=== PATIENT | female | born 2000 | race African-American/Black ===

== ENCOUNTER 2022-03-02 16:47 | Emergency (ER) | payer SELFPAY ==
--- OUTSIDE RECORDS SUMMARY | 2022-03-02 17:06 | XMS REPORT | Continuity of Care Document ---
:2000 Author Organization [facility] Address [address] [place] [address] Dr. Humphreys. [address] [place] [id number] Care Team Providers Name Role Phone Unavailable Unavailable Unavailable Problems This patient has no known problems. Allergies, Adverse Reactions, Alerts This patient has no known allergies or adverse reactions. Medications This patient has no known medications. Procedures This patient has no known procedures. Results This patient has no known results.
--- NOTE | 2022-03-02 18:27 | RAD REPORT ---
EXAM DESCRIPTION: RAD - Ankle Left 3 View - 03/02/2022 6:11 pm CLINICAL HISTORY: PAIN COMPARISON: No comparisons FINDINGS: No fracture or dislocation seen.
--- NOTE | 2022-03-02 18:51 | EDPHYS ---
Physician Documentation [facility] Name: Angélica Vaughn Age: 21 yrs Sex: Female : 2000 Arrival Date: 03/02/2022 Time: 16:48 Bed 12 Private MD: ED Physician Steven Main HPI: 03/02 19:04 This 21 yrs old Black Female presents to ER via Wheelchair with complaints of Ankle snw Injury. 19:04 The patient presents with decreased range of motion, tenderness. The complaints affect snw the left ankle. Onset: The symptoms/episode began/occurred suddenly, today, and became persistent. Context: The problem was sustained outdoors, resulted from a mis-step by the patient, on a curb, The mechanism of injury involved inversion of the affected ankle. The patient can partially bear weight on the affected extremity. Associated signs and symptoms: Pertinent positives: swelling. Severity of symptoms: At their worst the symptoms were mild, moderate. The patient has not experienced similar symptoms in the past. 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 - Social history:: Smoking status: unknown. ROS: 18:58 Constitutional: Negative for fever, chills, and weight loss, Eyes: Negative for injury, snw pain, redness, and discharge, ENT: Negative for injury, pain, and discharge, Neck: Negative for injury, pain, and swelling, Cardiovascular: Negative for chest pain, palpitations, and edema, Respiratory: Negative for shortness of breath, cough, wheezing, and pleuritic chest pain, Abdomen/GI: Negative for abdominal pain, nausea, vomiting, diarrhea, and constipation, Back: Negative for injury and pain, : Negative for injury, bleeding, discharge, and swelling, Skin: Negative for injury, rash, and discoloration, Neuro: Negative for headache, weakness, numbness, tingling, and seizure, Psych: Negative for depression, anxiety, suicide ideation, homicidal ideation, and hallucinations. 18:58 MS/extremity: Positive for injury or acute deformity, pain, swelling, of the left lateral malleolus. Exam: 18:56 Constitutional: This is a well developed, well nourished patient who is awake, alert, snw and in no acute distress. Head/Face: Normocephalic, atraumatic. Eyes: Pupils equal round and reactive to light, extra-ocular motions intact. Lids and lashes normal. Conjunctiva and sclera are non-icteric and not injected. Cornea within normal limits. Periorbital areas with no swelling, redness, or edema. ENT: Nares patent. No nasal discharge, no septal abnormalities noted. Tympanic membranes are normal and external auditory canals are clear. Oropharynx with no redness, swelling, or masses, exudates, or evidence of obstruction, uvula midline. Mucous membranes moist. Neck: Trachea midline, no thyromegaly or masses palpated, and no cervical lymphadenopathy. Supple, full range of motion without nuchal rigidity, or vertebral point tenderness. No Meningismus. Chest/axilla: Normal chest wall appearance and motion. Nontender with no deformity. No lesions are appreciated. Cardiovascular: Regular rate and rhythm with a normal S1 and S2. No gallops, murmurs, or rubs. Normal PMI, no JVD. No pulse deficits. Respiratory: Lungs have equal breath sounds bilaterally, clear to auscultation and percussion. No rales, rhonchi or wheezes noted. No increased work of breathing, no retractions or nasal flaring. Abdomen/GI: Soft, non-tender, with normal bowel sounds. No distension or tympany. No guarding or rebound. No evidence of tenderness throughout. Back: No spinal tenderness. No costovertebral tenderness. Full range of motion. Skin: Warm, dry with normal turgor. Normal color with no rashes, no lesions, and no evidence of cellulitis. Neuro: Awake and alert, GCS 15, oriented to person, place, time, and situation. Cranial nerves II-XII grossly intact. Motor strength 5/5 in all extremities. Sensory grossly intact. Cerebellar exam normal. Normal gait. 18:56 Musculoskeletal/extremity: Extremities: grossly normal except: noted in the left lateral malleolus: swelling, tenderness, ROM: limited active range of motion due to pain, in the left ankle, Circulation is intact in all extremities. Sensation intact. Vital Signs: 17:19 BP 109 / 83; Pulse 75; Resp 16; Temp 97.9; Pulse Ox 100% on R/A; Pain 9/10; iw MDM: 17:20 Patient medically screened. [facility] 18:57 Differential diagnosis: fracture, sprain, gout. Data reviewed: vital signs, nurses snw notes, radiologic studies, plain films. I considered the following discharge prescriptions or medication management in the emergency department Pain Medications: At this time, prescription pain medications are not recommended, pt quite sleepy. Counseling: I had a detailed discussion with the patient and/or guardian regarding: the need for outpatient follow up, for definitive care, a orthopedic surgeon. Special discussion: Based on the history and exam findings, there is no indication for further emergent testing or inpatient evaluation. I discussed with the patient/guardian the need to see the orthopedic surgeon for further evaluation of the symptoms. I discussed with the patient/guardian the need to see the primary care provider for further evaluation of the symptoms. 03/02 17:23 Order name: Ankle Left 3 View XRAY; Complete Time: 18:44 snw 03/02 18:55 Order name: Walking boot; Complete Time: 18:58 snw Administered Medications: No medications were administered Disposition Summary: 03/02/22 18:50 Discharge Ordered Location: Home snw Condition: Stable snw Diagnosis - Sprain of ankle snw Followup: snw - With: Private Physician - When: 2 - 3 days - Reason: Recheck today's complaints, Continuance of care, Re-evaluation by your physician Discharge Instructions: - Discharge Summary Sheet snw - Ankle Sprain snw - RICE Therapy for Routine Care of Injuries snw - Walking Boot, Adult snw Forms: - Medication Reconciliation Form snw - Thank You Letter snw - Antibiotic Education snw - Prescription Opioid Use snw - Work release form bd Prescriptions: - Mobic 7.5 mg Oral Tablet - take 1 tablet by ORAL route once daily take with food; 20 tablet; Refills: 0, snw Product Selection Permitted - orphenadrine citrate 100 mg Oral Tablet Sustained Release - take 1 tablet by ORAL route 2 times per day As needed; 20 tablet; Refills: 0, snw Product Selection Permitted Signatures: Dispatcher [employer] EDSteven Fierro MD MD cha Waters, Shelly, OPERATIONS SECTION MANAGER-C OPERATIONS SECTION MANAGER-Csnw Nancy Nazario, RN RN iw Sophia Gomez, RN RN jh5
--- NOTE | 2022-03-02 18:51 | ER ---
Nurse's Notes [facility] Name: Angélica Vaughn Age: 21 yrs Sex: Female : 2000 Arrival Date: 03/02/2022 Time: 16:48 Bed 12 Private MD: Diagnosis: Sprain of ankle Presentation: 03/02 17:18 Chief complaint: Patient states: fell trying to get to her car, rolled her left ankle, iw happened this morning. Coronavirus screen: At this time, the client does not indicate any symptoms associated with coronavirus-19. Ebola Screen: Patient negative for fever greater than or equal to 101.5 degrees Fahrenheit, and additional compatible Ebola Virus Disease symptoms Patient denies exposure to infectious person. Patient denies travel to an Ebola-affected area in the 21 days before illness onset. No symptoms or risks identified at this time. Initial Sepsis Screen: Does the patient meet any 2 criteria? No. Patient's initial sepsis screen is negative. Does the patient have a suspected source of infection? No. Patient's initial sepsis screen is negative. Risk Assessment: Do you want to hurt yourself or someone else? Patient reports no desire to harm self or others. Onset of symptoms was March 02, 2022. 17:18 Method Of Arrival: Wheelchair 17:18 Acuity: ADITI 4 Triage Assessment: 17:47 General: Appears in no apparent distress. uncomfortable, Behavior is calm, cooperative, jh5 appropriate for age. Pain: Complains of pain in left foot. Musculoskeletal: No deficits noted. 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 - Social history:: Smoking status: unknown. Screenin:46 [facility] ED Fall Risk Assessment (Adult) History of falling in the last 3 months, [facility] including since admission Yes- single mechanical fall (1 pt) Confusion or Disorientation No (0 pts) Intoxicated or Sedated No (0 pts) Impaired Gait Yes (1 pt) Mobility Assist Device Used No (0 pt) Altered Elimination No (0 pt) Score/Fall Risk Level 0 - 2 = Low Risk. Abuse screen: Denies threats or abuse. Denies injuries from another. Nutritional screening: No deficits noted. Tuberculosis screening: No symptoms or risk factors identified. Vital Signs: 17:19 BP 109 / 83; Pulse 75; Resp 16; Temp 97.9; Pulse Ox 100% on R/A; Pain 9/10; iw ED Course: 16:48 Patient arrived in ED. rg4 16:50 Radha Bautista FNP-C is [facility] snw 16:50 Steven Main MD is Attending Physician. snw 17:19 Triage completed. iw 17:20 Arm band placed on. iw 17:46 Patient has correct armband on for positive identification. Call light in reach. Side [facility] rails up X 1. 17:46 No provider procedures requiring assistance completed. [facility] 18:13 Ankle Left 3 View XRAY In Process Unspecified. EDMS Administered Medications: No medications were administered Medication: 17:47 VIS not applicable for this client. [facility] Outcome: 18:50 Discharge ordered by . snw 18:58 Patient left the ED. [facility] Signatures: Dispatcher [employer] EDMS Radha Bautista FNP-C FNP-Csnw Nancy Nazario, RN RN Leelee Patel 4 Sophia Gomez, RN RN [facility]
[2022-03-02 20:23] VITALS: BP 109/83; TEMP 97.9; O2SAT 100
== END 2022-03-02 18:58 | disposition home or self-care (01) ==
LOC: ER 16:47
DX: S93.402A Sprain of unspecified ligament of left ankle, initial encounter (principal)
CPT/HCPCS: 99282